=== PATIENT | female | born 1995 | race Caucasian/White ===

== ENCOUNTER 2016-11-29 22:33 | Emergency (ER) | payer BC ==
[2016-11-29 22:43] VITALS: BP 105/69
[2016-11-30] MEDS ORDERED: Orphenadrine 100 MG Tab.ER PO STA (00:39)
--- NOTE | 2016-11-30 00:39 | EDM.PDOC ---
ED HPI GENERAL MEDICAL PROBLEM - General Chief Complaint: Back Pain or Injury Stated Complaint: UPPER BACK PAIN Time Seen by Provider: 11/29/16 23:17 Source of Information: Reports: Patient, RN Notes Reviewed History Limitations: Reports: No Limitations - History of Present Illness INITIAL COMMENTS - FREE TEXT/NARRATIVE: The patient states that she has had pain to the inferior aspect of her right scapula for 2 weeks. It has been coming and going, but today is worse. She feels better if she is lying on her back, worse with breathing. She states that she has been taking ibuprofen and a single dose of her mother's muscle relaxant - name unknown - about a week ago. No prior similar symptoms. The patient does not have a PCP. Upper Back Pain Score (Numeric/FACES): 7 - Related Data Allergies Allergy/AdvReac Type Severity Reaction Status Date / Time No Known Allergies Allergy Verified 11/29/16 22:38 Home Meds: Home Meds Ibuprofen 800 mg PO TID PRN #30 tablet 05/05/16 [Rx] Norgestrel-Ethinyl Estradiol [Elinest-28 Tablet] 1 tab PO DAILY 05/05/16 [ History] Esomeprazole [NexIUM] 40 mg PO ACBREAKFAST 11/29/16 [History] Orphenadrine [Norflex] 1 tab PO Q12H #20 tab.er 11/30/16 [Rx] Past Medical History Gastrointestinal History: Reports: GERD - Past Surgical History HEENT Surgical History: Reports: Oral Surgery ([place] teeth extraction) Social & Family History - Tobacco Use Smoking Status *Q: Former Smoker Years of Tobacco use: 5 Packs/Tins Daily: 0.2 Used Tobacco, but Quit: Yes Month Tobacco Last Used: 7 Second Hand Smoke Exposure: No - Caffeine Use Caffeine Use: Reports: Coffee - Alcohol Use Alcohol Use History: Yes Alcohol Use Frequency: Socially - Recreational Drug Use Recreational Drug Use: No - Living Situation & Occupation Living situation: Reports: Single, Alone Occupation: Employed ([employer]) ED ROS GENERAL - Review of Systems Review Of Systems: See Below Constitutional: Reports: No Symptoms HEENT: Reports: No Symptoms Respiratory: Reports: No Symptoms Cardiovascular: Reports: No Symptoms Endocrine: Reports: No Symptoms GI/Abdominal: Reports: No Symptoms : Reports: No Symptoms Musculoskeletal: Reports: No Symptoms Skin: Reports: No Symptoms Neurological: Reports: No Symptoms Psychiatric: Reports: No Symptoms Hematologic/Lymphatic: Reports: No Symptoms Immunologic: Reports: No Symptoms ED EXAM, UPPER BACK/NECK PAIN - Physical Exam Exam: See Below Exam Limited By: No Limitations General Appearance: Alert, WD/WN, Mild Distress Eye Exam: Bilateral Eye: Normal Inspection Ears Exam: Normal External Exam, Hearing Grossly Normal Nose Exam: Normal Inspection, No Blood Throat/Mouth Exam: Normal Inspection, Normal Lips, Normal Voice, No Airway Compromise Head Exam: Atraumatic, Normocephalic Neck Exam: Normal Alignment, Normal Inspection Cardiovascular/Respiratory: Regular Rate, Rhythm, No M/R/G, Normal Peripheral Pulses, No JVD, Normal Breath Sounds, No Respiratory Distress GI/Abdominal: Normal Bowel Sounds, Soft, Non-Tender, No Organomegaly, No Distention, No Abnormal Bruit, No Mass (Female) Exam: Deferred Rectal (Female) Exam: Deferred Back Exam: Normal Inspection, Full Range of Motion, Muscle Spasm (Reproducible tenderness to palpation of the musculature inferior to the right scapula. Nontender elsewhere.) Extremities: Normal Inspection, Normal Range of Motion, No Pedal Edema, Normal Capillary Refill Neurologic: No Motor/Sensory Deficits, Alert, Oriented x 3 Psychiatric: Normal Affect Skin Exam: Normal Color, Warm/Dry Course - Vital Signs Last Recorded V/S: Last Vital Signs Temp 36.8 C 11/29/16 22:40 Pulse 82 11/29/16 22:40 Resp 18 11/29/16 22:40 BP 105/69 11/29/16 22:40 Pulse Ox 95 11/29/16 22:40 - Orders/Labs/Meds Orders: Active Orders 24 hr Category Date Time Status Chest 2V [CR] Stat Exams 11/30/16 00:09 Taken Meds: Medications Discontinued Medications Generic Name Dose Route Start Last Admin Trade Name Freq PRN Reason Stop Dose Admin Orphenadrine Citrate 100 mg 11/30/16 00:39 11/30/16 00:45 Norflex PO 11/30/16 00:40 100 mg ONETIME STA Administration - Re-Assessments/Exams Free Text/Narrative Re-Assessment/Exam: 11/30/16 00:39 Two-view chest radiograph appears to be grossly normal. Cardiac silhouette is within normal limits. No pulmonary vascular congestion. No pleural effusions. No focal infiltrate. No pneumothorax. Formal read per the Radiologist pending. 11/30/16 00:46 Chest x-ray results discussed with the patient. Her symptoms appear to be due to a muscle spasm of a parascapular muscle. She has received her first dose of Norflex here, and I will e-prescribe the same. I'm recommending massage as well , if possible. I will refer her to the clinic, should her symptoms not improve. Departure - Departure Time of Disposition: 00:46 Disposition: Home, Self-Care 01 Condition: Good Clinical Impression: Muscle spasm of back - Discharge Information Prescriptions: Orphenadrine [Norflex] 1 tab PO Q12H #20 tab.er Instructions: Muscle Cramps and Spasms, [id number] Referrals: PCP,Jomar [Primary Care Provider] - Gillian Ferris PA-C [Physician [employer]ant[employer] Reporter] - Forms: ED Department Discharge Additional Instructions: You were seen in the emergency room for right-sided back pain. Workup in the ER included a chest x-ray, which appears to be normal. No collapsed lung or pneumonia. Your back pain is MOST LIKELY due to a muscle spasm. You have been started on the muscle relaxant Norflex. Take one tablet every 12 hours, as prescribed. We recommend you also take [id number] ibuprofen, 2-3 tablets (400-600 mg) every 8 hours, with food, as needed for discomfort. If your symptoms do not improve within the next few days, please follow-up with Gillian Ferris in the clinic. If any other problems, please do not hesitate to return to the ER. - My Orders Last 24 Hours: My Active Orders 11/30/16 00:09 Chest 2V [CR] Stat - Assessment/Plan Last 24 Hours: My Active Orders 11/30/16 00:09 Chest 2V [CR] Stat
--- NOTE | 2016-11-30 07:08 | CR ---
Chest: Two views of the chest were obtained. Comparison: No previous study. Heart size and mediastinum are within normal limits. Small nodule is seen within the right upper lung which is most likely due to small granuloma. Lungs otherwise are clear. Bony structures are unremarkable. Impression: 1. Nothing acute is identified on two-view chest x-ray. Diagnostic code #2
== END 2016-11-30 00:52 | disposition home or self-care (01) ==
LOC: JD.ED 22:33
DX: M62.830 Muscle spasm of back (principal); K21.9 Gastro-esophageal reflux disease without esophagitis; Z79.899 Other long term (current) drug therapy; Z87.891 Personal history of nicotine dependence
CPT/HCPCS: 71020; 99284; A9270; 99283